=== PATIENT | male | born 1935 | race Caucasian/White ===

== ENCOUNTER → 2018-06-12 | Outpatient (CLI) | payer MEDICARE | LOC: M.WC 09:59 | DX: T81.31XA Disruption of external operation (surgical) wound, not elsewhere classified, initial encounter (principal); C18.7 Malignant neoplasm of sigmoid colon; I25.2 Old myocardial infarction; J44.9 Chronic obstructive pulmonary disease, unspecified; Z79.82 Long term (current) use of aspirin; Z87.891 Personal history of nicotine dependence; Y92.89 Other specified places as the place of occurrence of the external cause; Y83.8 Other surgical procedures as the cause of abnormal reaction of the patient, or of later complication, without mention of misadventure at the time of the procedure ==

== ENCOUNTER → 2018-06-19 | Outpatient (CLI) | payer MEDICARE | LOC: M.WC 02:04 | DX: T81.31XD Disruption of external operation (surgical) wound, not elsewhere classified, subsequent encounter (principal); C18.7 Malignant neoplasm of sigmoid colon; I25.2 Old myocardial infarction; J44.9 Chronic obstructive pulmonary disease, unspecified; F17.290 Nicotine dependence, other tobacco product, uncomplicated; Y83.8 Other surgical procedures as the cause of abnormal reaction of the patient, or of later complication, without mention of misadventure at the time of the procedure ==

== ENCOUNTER → 2018-07-03 | Outpatient (CLI) | payer MEDICARE | LOC: M.WC 01:21 | DX: T81.31XD Disruption of external operation (surgical) wound, not elsewhere classified, subsequent encounter (principal); C18.7 Malignant neoplasm of sigmoid colon; I25.2 Old myocardial infarction; J44.9 Chronic obstructive pulmonary disease, unspecified; Z87.891 Personal history of nicotine dependence; Y83.8 Other surgical procedures as the cause of abnormal reaction of the patient, or of later complication, without mention of misadventure at the time of the procedure ==

== ENCOUNTER → 2018-07-17 | Outpatient (CLI) | payer MEDICARE | LOC: M.WC 01:11 | DX: T81.31XD Disruption of external operation (surgical) wound, not elsewhere classified, subsequent encounter (principal); C18.7 Malignant neoplasm of sigmoid colon; I25.2 Old myocardial infarction; J44.9 Chronic obstructive pulmonary disease, unspecified; Z87.891 Personal history of nicotine dependence; Y83.8 Other surgical procedures as the cause of abnormal reaction of the patient, or of later complication, without mention of misadventure at the time of the procedure ==

== ENCOUNTER → 2018-07-24 | Outpatient (CLI) | payer MEDICARE | LOC: M.WC 01:03 | DX: T81.31XS Disruption of external operation (surgical) wound, not elsewhere classified, sequela (principal); C18.7 Malignant neoplasm of sigmoid colon; I25.2 Old myocardial infarction; J44.9 Chronic obstructive pulmonary disease, unspecified; Z87.891 Personal history of nicotine dependence; Y83.8 Other surgical procedures as the cause of abnormal reaction of the patient, or of later complication, without mention of misadventure at the time of the procedure ==

== ENCOUNTER → 2018-08-07 | Outpatient (CLI) | payer MEDICARE | LOC: M.WC 01:11 | DX: T81.31XS Disruption of external operation (surgical) wound, not elsewhere classified, sequela (principal); C18.7 Malignant neoplasm of sigmoid colon; I25.2 Old myocardial infarction; J44.9 Chronic obstructive pulmonary disease, unspecified; Z87.891 Personal history of nicotine dependence; Y83.8 Other surgical procedures as the cause of abnormal reaction of the patient, or of later complication, without mention of misadventure at the time of the procedure ==

== ENCOUNTER → 2018-08-28 | Outpatient (CLI) | payer MEDICARE | LOC: M.WC 10:00 | DX: T81.31XS Disruption of external operation (surgical) wound, not elsewhere classified, sequela (principal); C18.7 Malignant neoplasm of sigmoid colon; I25.2 Old myocardial infarction; J44.9 Chronic obstructive pulmonary disease, unspecified; Z87.891 Personal history of nicotine dependence; Y83.8 Other surgical procedures as the cause of abnormal reaction of the patient, or of later complication, without mention of misadventure at the time of the procedure ==

== ENCOUNTER → 2018-09-25 | Outpatient (CLI) | payer MEDICARE | LOC: M.WC 09-11 01:37 | DX: T81.31XS Disruption of external operation (surgical) wound, not elsewhere classified, sequela (principal); C18.7 Malignant neoplasm of sigmoid colon; I25.2 Old myocardial infarction; J44.9 Chronic obstructive pulmonary disease, unspecified; Z87.891 Personal history of nicotine dependence; Y83.8 Other surgical procedures as the cause of abnormal reaction of the patient, or of later complication, without mention of misadventure at the time of the procedure ==